=== PATIENT | female | born 1945 | race Caucasian/White ===

== ENCOUNTER → 2025-10-13 10:34 | Outpatient (REF) | payer MEDICARE, BC, SELFPAY | LOC: PAVMRI 10:34 | PROVIDERS: ATTENDING PHYSICIAN Psychiatry & Neurology Behavioral Neurology & Neuropsychiatry; PRIMARYCARE PHYSICIAN Nurse Practitioner Family | DX: G30.9 Alzheimer's disease, unspecified (principal) | CPT/HCPCS: 70551 ==